=== PATIENT | female | born 1970 | race African-American/Black ===

== ENCOUNTER 2019-12-01 08:01 | Outpatient (CLI) | payer OTHER, SELFPAY ==
--- NOTE | ~2019-12-01 | CT_ITS ---
EXAMINATION: CT cervical spine wo con DATE: 12/01/2019 08:38 INDICATION: Cervical radiculopathy TECHNIQUE: Computed tomography (CT) of the cervical spine was performed without intravenous contrast. The dose-length product (DLP) was there is no fracture. 100 and mGy-cm. Automated exposure control a nd iterative reconstruction technique were employed. COMPARISON: MRI, 03/26/2018 FINDINGS: There is reversal of the normal cervical lordosis. There are 2 mm of anterolisthesis of C4 on C5. There is moderate loss of intervertebral disc space height at C5-6 and mild loss of interverte bral disc space height at C4-5 and C6-7. The odontoid is intact. There is minimal posterior disc bulg e at C4-5 without central canal stenosis. A mild diffuse disc bulge is present at C5-6 with mild cent ral canal stenosis, unchanged. A mild posterior disc bulge is present at C6-7 without central canal s tenosis. There is moderate to severe bilateral uncovertebral joint osteoarthritis at C5-6 and C6-7. IMPRESSION: 1. Mild to moderate cervical spondylosis, worst at C5-6, without acute findings or significant interv al change. Reviewed, dictated and finalized at location A. ETRICIAN AND GYNAECOLOGIST IMPRESSION: 1. Mild to moderate cervical spondylosis, worst at C5-6, without acute findings or significant interval change.
== END 2019-12-01 08:02 | disposition home or self-care (01) ==
PROVIDERS: PCP Family Medicine; Visit Provider Nurse Practitioner Gerontology
DX: M47.22 Other spondylosis with radiculopathy, cervical region (principal)
CPT/HCPCS: 72125

== ENCOUNTER 2021-09-15 16:15 | Outpatient (CLI) | payer BC, SELFPAY ==
--- NOTE | ~2021-09-15 | XR_ITS ---
EXAMINATION: XR ankle RT 2V DATE: 09/15/2021 16:29 INDICATION: Right ankle pain. TECHNIQUE: 2 views of right ankle were obtained. COMPARISON: None. FINDINGS: Bone alignment is normal. No fracture. Joint spaces are well maintained. There are enthesop hytes at the posterior and plantar aspects of calcaneal tuberosity. IMPRESSION: 1. No fracture. Reviewed, dictated and finalized at location A. FORCE DEVELOPMENT VICE PRESIDENT IMPRESSION: 1. No fracture.
== END 2021-09-15 16:16 ==
PROVIDERS: PCP Family Medicine; Visit Provider Family Medicine
DX: M25.571 Pain in right ankle and joints of right foot (principal)
CPT/HCPCS: 73600

== ENCOUNTER → 2021-11-07 03:12 | Outpatient (CLI) | payer BC, SELFPAY ==
[2021-11-07 16:39] LABS: Influenza A QL RT-PCR Negative (Negative); Influenza B QL RT-PCR Negative (Negative); SARS-CoV-2 RNA PCR Positive
== END ==
PROVIDERS: PCP Family Medicine; Visit Provider Physician Assistant
DX: R68.89 Other general symptoms and signs (principal); U07.1 COVID-19
CPT/HCPCS: 87502; C9803; U0003; U0005

== ENCOUNTER 2021-11-13 15:17 | Outpatient (CLI) | payer BC, SELFPAY ==
[2021-11-13 15:58] LABS: Anion Gap 11 mmol/L (8-16); Blood Urea Nitrogen 18 mg/dL (7-17); Calcium 9.5 mg/dL (8.4-10.2); Carbon Dioxide 26 mmol/L (22-30); Chloride 101 mmol/L (98-107); Estimated Glomerular Filt Rate > 60; Glucose 108 mg/dL (65-110); Potassium 3.4 mmol/L (3.4-5.0); Sodium 138 mmol/L (137-145)
== END 2021-11-13 15:18 | disposition home or self-care (01) ==
LOC: ANHLAB 15:18
PROVIDERS: PCP Family Medicine; Visit Provider Physician Assistant
DX: U07.1 COVID-19 (principal); R51.9 Headache, unspecified
CPT/HCPCS: 36415; 80048

== ENCOUNTER 2021-12-30 08:42 | Outpatient (CLI) | payer BC, SELFPAY ==
--- NOTE | ~2021-12-30 | US_ITS ---
EXAMINATION: US aorta DATE: 12/30/2021 09:45 CDT INDICATION: Family history of abdominal aortic aneurysm. Hypertension. TECHNIQUE: Grayscale, color Doppler, and pulsed Doppler images of the aorta and common iliac arteries were obtained. COMPARISON: None. FINDINGS: The proximal aorta measures 2.4 cm greatest sagittal dimension. The mid aorta measures 1.9 cm greates t sagittal dimension. The distal aorta measures 1.7 cm greatest sagittal dimension. The right common internal iliac artery measures 0.9 cm. The left common iliac artery measures 0.9 cm. IMPRESSION: 1. Normal caliber aorta without aneurysm. Reviewed, dictated and finalized at location B.
== END 2021-12-30 08:43 | disposition home or self-care (01) ==
LOC: ANHIMG 08:47
PROVIDERS: PCP Family Medicine; Visit Provider Internal Medicine Cardiovascular Disease
DX: I10 Essential (primary) hypertension (principal); Z82.49 Family history of ischemic heart disease and other diseases of the circulatory system
CPT/HCPCS: 76775

== ENCOUNTER 2022-03-05 00:37 | Day surgery (SDC) | payer BC, SELFPAY ==
[2022-03-02 15:07] VITALS: BMI 27.8
--- NOTE | 2022-03-02 15:10 | SUR.PREOP ---
Report to the Outpatient Waiting Room, entrance under the green pavilion located off [facility], at time 0700 on Mar 05 2022 for 0900 procedure. - You and your visitor will be asked a series of questions to screen for COVID 19 for your protection. - Only one visitor is allowed at this time. - The patient visitor is requested to leave or wait in car when not with patient. - A mask is required within the hospital. Patients may have clear liquids (water, carbonated beverages, clear teas, apple juice) until 3 hours prior to surgery with a maximum of 20 ounces. stop at 0600 Take the following medications with a SIP of water the morning of surgery: amlodopine and bring inhaler in case you need it Medications to discontinue per physician NA Date to take last dose NA Please no make-up, nail hebrew, hairspray, perfume, deodorant, or body powder the day of surgery. No jewelry (including any body piercings) or valuables the day of surgery, leave them at home. Please take a shower or bath the night before, or the morning of, surgery with an antibacterial soap. Wear comfortable, loose fitting clothing. Children are encouraged to wear pajamas. - Jewelry must be removed prior to entering the operating room. Rings and piercing that are not removed may be cut off. - The hospital will not accept responsibility for valuables. - Please leave all valuables, including medications, at home the day of surgery. If you are going home after surgery, a licensed local driver must drive you home. - NO public transportation without another adult. - We recommend that an adult stay with you for 24 hours following discharge. - We also recommend that you do not drive, make important decision, drink alcoholic beverages, or take any drugs that were not prescribed by your health care provider for at least 24 hours after your discharge time. Follow any additional instructions given to you from your surgeon. If you or anyone in your household have experienced Covid symptoms in the past week, please notify your surgeon or the nurse liaison at the phone number below for possible testing. Telephone instructions given to patient Yulissa and asked if any additional questions and then verbalized understanding. Patient advised to call surgeon office or pre surgery nurse liaison [phone] if any additional questions.
--- NOTE | 2022-03-04 08:52 | PM.IMHP ---
H&P: HPI History of Present Illness Date/Time: 03/04/22 08:52 51-year-old female presents for surgical intervention for abnormal bleeding. Ultrasound ordered for the bleeding revealed a known uterine fibroid as well as thickened endometrial cavity a 17mm consistent with endometrial polyp. We have discussed more definitive therapy regarding the fibroid but she has had this for a significant period of time and this in and of itself has caused her no issues. Therefore we will be proceeding with hysteroscopy and removal of polyp only today. Chief Complaint: Abnormal bleeding/ endometrial hypertrophy Review of Systems Review of Systems: All systems reviewed & are unremarkable except as noted in HPI and below PMFSH Past Medical History Medical History Achilles tendinitis of right lower extremity Arthritis of knee, right Chronic headaches Exostosis of right posterior calcaneus History of anesthesia problem HLD (hyperlipidemia) HTN (hypertension) HTN (hypertension) Lymph node symptom removed in 1999 per patient questionnaire Vertigo Weight gain Surgical History Surgical History H/O arthroscopy of right knee 2013 per patient questionnaire History of sinus surgery deviated septum 1997 per patient questionnaire Family History Family History Other HLD (hyperlipidemia) Heart disease Hypertension Lung cancer Social History Social History Smoking status: Never smoker Second hand tobacco smoke exposure: No Alcohol intake: current Drinks per week: 2 Alcohol use details: social drinker Substance use: never Substance use type: does not use Living arrangements: with family Additional living arrangements comments: 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 [employer] Gender identity (if verbalized by the patient): Female Sexual Orientation (if Verbalized by the Patient): Straight or Heterosexual Spiritual care concerns: No Meds Home Medications and Allergies Home Medications Medication Instructions Recorded Confirmed Type famotidine 20 mg tablet 20 mg PO .qhs #30 tablet 09/27/19 03/02/22 Rx albuterol sulfate 90 mcg/actuation 1 - 2 inhalation INHALATION Q4-6H 07/09/20 03/02/22 Rx aerosol inhaler PRN #8.5 gm meloxicam 15 mg tablet 15 mg PO PRN 09/08/21 03/02/22 History amlodipine 5 mg tablet 5 mg PO DAILY #30 tablet 10/20/21 03/02/22 Rx jwziyrldhx-aiomcgpipsupx-gtfaabbz 1 tablet PO Q6H PRN #30 tablet 11/17/21 03/02/22 Rx 50 mg-325 mg-40 mg tablet hydrochlorothiazide 12.5 mg tablet 12.5 mg PO DAILY #30 tablet 12/02/21 03/02/22 Rx Allergies Allergy/AdvReac Type Severity Reaction Status Date / Time Penicillins Allergy Unknown Anaphylaxis Verified 03/02/22 14:45 sumatriptan Allergy Unknown Swelling Verified 03/02/22 14:45 of Lip/Tongue/Throat Exam Const: General: cooperative, healthy appearing and comfortable Resp: Effort & Inspection: normal respiratory effort Auscultation: clear to auscultation bilaterally Cardio: Rate: regular rate Rhythm: regular rhythm GI: Inspection: normal to inspection Auscultation: normal bowel sounds : External Female Exam: normal external appearance Speculum Exam - Vagina: normal appearance of the vagina Speculum Exam - Cervix: normal appearance of the cervix Bimanual exam- vagina & uterus: enlarged ( 8-10 week size with lateral fibroid palpated) Bimanual Exam- Adnexa, other: normal adnexae Assessment and Plan Assessment and plan (1) Abnormal uterine bleeding due to endometrial polyp: Code(s): N93.9 - Abnormal uterine and vaginal bleeding, unspecified; N84.0 - Polyp of corpus uteri Status: Acute Assessment and Plan: hysteroscopic exa
[2022-03-05] MEDS: LACTATED RINGERS 1,000 ML 30 ML IV CONT (07:00)
--- NOTE | 2022-03-05 07:22 | WPDHPUPDATE1 ---
History and Physical Update Update Date/Time: 03/05/22 07:22 History and Physical has been reviewed, including an updated exam of the patient. There are NO changes in the patient's condition. Risks, benefits, and alternatives have been discussed and questions answered. Patient agrees to proceed with procedure.
[2022-03-05] MEDS: ACETAMINOPHEN 500 MG TABLET 1000 MG PO (07:29)
[2022-03-05 07:45] VITALS: BP 133/85; PULSE 77; RESP 16; TEMP 36.7; O2SAT 100
--- NOTE | 2022-03-05 07:51 | WPDANESEPPF ---
Anes - Initial Pre Proc Eval Procedure: Operation Date: 03/05/22 09:00 Proposed Procedures p Hysteroscopy, Dilation and Curettage with Polypectomy - Ismael Cox MD Date/Time: 03/05/22 07:51 Surgeon: Ismael Cox MD Pre Op Diagnosis: uterine polyp Patient Data Age: 51 Gender: F Height: 1.75 m Weight: 85.45 kg Allergies Allergy/AdvReac Type Severity Reaction Status Date / Time Penicillins Allergy Unknown Anaphylaxis Verified 03/02/22 14:45 sumatriptan Allergy Unknown Swelling Verified 03/02/22 14:45 of Lip/Tongue/Throat Home Medications Medication Instructions Recorded Confirmed Type famotidine 20 mg tablet 20 mg PO .qhs #30 tablet 09/27/19 03/02/22 Rx albuterol sulfate 90 mcg/actuation 1 - 2 inhalation INHALATION Q4-6H 07/09/20 03/02/22 Rx aerosol inhaler PRN #8.5 gm meloxicam 15 mg tablet 15 mg PO PRN 09/08/21 03/02/22 History amlodipine 5 mg tablet 5 mg PO DAILY #30 tablet 10/20/21 03/02/22 Rx cvxngcnlhv-pdkqbqndfjape-yzuadkuu 1 tablet PO Q6H PRN #30 tablet 11/17/21 03/02/22 Rx 50 mg-325 mg-40 mg tablet hydrochlorothiazide 12.5 mg tablet 12.5 mg PO DAILY #30 tablet 12/02/21 03/02/22 Rx Laboratory Tests 03/05/22 07:28 Sodium Pending Potassium Pending Chloride Pending Carbon Dioxide Pending Anion Gap Pending BUN Pending Creatinine Pending Estim Creat Clear Calc Pending Estimated GFR Pending Glucose Pending Calcium Pending Patient hx anesthesia problems: post op nausea/vomiting Family hx anesthesia problems: none Results Review: All pre-operative results and documents have been reviewed as part of the pre-operative evaluation. [facility] Past Medical History Medical History Achilles tendinitis of right lower extremity Arthritis of knee, right Chronic headaches Exostosis of right posterior calcaneus History of anesthesia problem HLD (hyperlipidemia) HTN (hypertension) HTN (hypertension) Lymph node symptom removed in 1999 per patient questionnaire Vertigo Weight gain Surgical History Surgical History H/O arthroscopy of right knee 2013 per patient questionnaire History of sinus surgery deviated septum 1997 per patient questionnaire Family History Family History Other HLD (hyperlipidemia) Heart disease Hypertension Lung cancer Social History Social History Smoking status: Never smoker Second hand tobacco smoke exposure: No Alcohol intake: current Drinks per week: 2 Alcohol use details: social drinker Substance use: never Substance use type: does not use Living arrangements: with family Additional living arrangements comments: 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 [employer] Gender identity (if verbalized by the patient): Female Sexual Orientation (if Verbalized by the Patient): Straight or Heterosexual Spiritual care concerns: No Anes - Eval Final PreProcedure Day of Procedure 03/05/22 07:51 Patient weight: overweight Heart: regular rate and rhythm Lungs: clear to auscultation Airway: Mallampati scale class II Neurological: alert and oriented Last oral intake: >/= 8 hours ASA classification: III Emergent: no Anesthetic plan: proceed Anesthesia type and monitoring: general GIVS and standard monitoring Results Review: All pre-operative results and documents have been reviewed as part of the pre-operative evaluation. Informed Consent: The patient's anesthetic plan and its attendant risks and benefits were discussed with the patient/family/POA. Questions were solicited and answers provided to the satisfaction of the patient/family/POA.
[2022-03-05 07:58] LABS: Anion Gap 11 mmol/L (8-16); Blood Urea Nitrogen 16 mg/dL (7-17); Calcium 9.4 mg/dL (8.4-10.2); Carbon Dioxide 27 mmol/L (22-30); Chloride 102 mmol/L (98-107); Estimated CRCL calculation 77 ml/min; Estimated Glomerular Filt Rate > 60; Glucose 108 mg/dL (65-110); Potassium 3.8 mmol/L (3.4-5.0); Sodium 140 mmol/L (137-145)
--- NOTE | 2022-03-05 08:34 | WPDHPUPDATE1 ---
History and Physical Update Update Date/Time: 03/05/22 08:34 If fibroid and or polyp is noted during procedure at will ovary removed whether by MyoSure or some other method. History and Physical has been reviewed, including an updated exam of the patient. There are NO changes in the patient's condition. Risks, benefits, and alternatives have been discussed and questions answered. Patient agrees to proceed with procedure.
--- NOTE | 2022-03-05 09:07 | PM.OP ---
Procedure Note - Brief Procedure Note - Brief Date of procedure: 03/05/22 Pre-op diagnosis: uterine polyp Post-op diagnosis: Same Procedure performed: 1. Hysteroscopy 2. Uterine curettings 3. Polypectomy via MyoSure. Description of procedure: Patient usual manner for this procedure cervix is still and upon entry thickened cavity polyps. MyoSure was then used to polyp in excess tissue. Sharp curette throughout the rest of the cavity to remove whatever remaining tissue was there. This point seizure was considered terminated bleeding and she was sent to the recovery room stable condition. Anesthesia: MAC Surgeon: Ismael Cox MD Estimated blood loss (mL): 25 Drains: No Packing: No Pathology: Yes Complications: No immediate complications Condition: Stable Disposition: PACU Findings: Polyp and thickened endometrial cavity noted on hysteroscopic exam
[2022-03-05 09:20] VITALS: BP 134/91; PULSE 81; RESP 16; O2SAT 100
[2022-03-05 09:45] VITALS: BP 133/87; PULSE 69; RESP 12; O2SAT 100
[2022-03-05 10:15] VITALS: BP 132/87; PULSE 64; RESP 12
== END 2022-03-05 10:35 | disposition home or self-care (01) ==
PROVIDERS: Anesthesiology; PCP Family Medicine; Visit Provider Obstetrics & Gynecology
PROC: 0U5B8ZZ Destruction of Endometrium, Via Natural or Artificial Opening Endoscopic (ICD-10-PCS; CPT 58563; principal; 2022-03-05 09:00)
DX: N84.0 Polyp of corpus uteri (principal); N93.9 Abnormal uterine and vaginal bleeding, unspecified; I10 Essential (primary) hypertension; E78.5 Hyperlipidemia, unspecified; Z79.51 Long term (current) use of inhaled steroids
CPT/HCPCS: 58558; 36415; 80048; 88305; A9270; J1100; J2250; J2405; J2704; J3010; J7030; J7120

== ENCOUNTER 2022-09-29 11:39 | Outpatient (CLI) | payer BC, SELFPAY ==
--- NOTE | ~2022-09-29 | CT_ITS ---
EXAMINATION: CT sinus wo con DATE: 09/29/2022 11:52 INDICATION: Chronic pansinusitis TECHNIQUE: Computed tomography (CT) of the paranasal sinuses was performed without intravenous contra st. The dose-length product was 281.78 mGy-cm. Automated exposure control and iterative reconstructio n technique were employed. COMPARISON: None FINDINGS: There is mucosal thickening of the maxillary and the ethmoid sinuses. No air-fluid levels. No significant mucoperiosteal reaction. No nasal septal deviation. Right ostiomeatal unit is occluded by soft tissue. Left ostiomeatal unit is partially occluded. Mastoids are pneumatized. IMPRESSION: 1. Mild sinusitis of the maxillary and ethmoid sinuses, likely chronic. Reviewed, dictated and finalized at location B. OGRAPHER
== END 2022-09-29 11:40 ==
PROVIDERS: PCP Family Medicine; Visit Provider Otolaryngology
DX: J32.4 Chronic pansinusitis (principal)
CPT/HCPCS: 70486

== ENCOUNTER 2023-08-26 09:00 | Outpatient (CLI) | payer BC, SELFPAY ==
--- NOTE | ~2023-08-26 | NM_ITS ---
EXAM: NM gastric emptying study DATE: 08/26/2023 13:23 INDICATION: Nausea. Abnormal CT scan. TECHNIQUE: A gastric emptying study was performed using the methodology of Chandan ALANIZ, et al. J Nucl Med 2007; 48:568-572. The patient was given a meal consisting of 2 scrambled eggs labeled with 0.76 mCi Tc-99m sulfur colloid, 2 slices of toast, two packages of jam, and approximately 120 mL of water. Simultaneous anterior and posterior 1-min images of the abdomen were obtained with the patient supin e at multiple time points over a total period of 4 hours. The geometric mean of anterior and posterio r views was determined, and the percentage retention was calculated for each time point. COMPARISON: None. FINDINGS: Gastric retention of the radiotracer-labeled meal was 53%, 27%, and 6% at the 1-hour, 2-hour, and 4-h our time points, respectively. With this technique, apparent rapid gastric emptying is suggested by < 30% gastric retention at 1 hour. Delayed gastric emptying is defined by gastric retention of >90% at 1 hour, >60% retention at 2 hours, or >10% retention at 4 hours. IMPRESSION: 1. Normal gastric emptying. Reviewed, dictated and finalized at location A. MOTIVE REFINISHER IMPRESSION: 1. Normal gastric emptying.
== END 2023-08-26 09:01 | disposition home or self-care (01) ==
PROVIDERS: PCP Family Medicine; Visit Provider Nurse Practitioner Family
DX: R11.0 Nausea (principal); R93.89 Abnormal findings on diagnostic imaging of other specified body structures
CPT/HCPCS: 78264; A9541

== ENCOUNTER 2023-09-07 01:35 | Day surgery (SDC) | payer BC, SELFPAY ==
[2023-08-25 10:59] VITALS: BMI 25.7
--- NOTE | 2023-09-03 14:35 | SUR.PREOP ---
Patient called regarding upcoming procedure. Reviewed preop instructions, appointment times, and procedure prep.
[2023-09-07 06:58] VITALS: BP 145/81; PULSE 76; RESP 17; TEMP 36.3; O2SAT 100; BMI 25.9
[2023-09-07] MEDS: LACTATED RINGERS 1,000 ML 150 ML IV CONT (07:11)
--- NOTE | 2023-09-07 07:56 | WPDANESEPPF ---
Anes - Initial Pre Proc Eval Procedure: Operation Date: 09/07/23 08:30 Proposed Procedures p Esophagogastroduodenoscopy & Colonoscopy - Barron Car MD Date/Time: 09/07/23 07:56 Surgeon: Barron Car MD Pre Op Diagnosis: Left Lower Quad Pain, Melena,GERD,Nausea, Patient Data Age: 53 Gender: F Height: 1.75 m Weight: 79.7 kg Last Vital Signs Temp 36.3 C L 09/07/23 06:58 Pulse 76 09/07/23 06:58 Resp 17 09/07/23 06:58 BP 145/81 H 09/07/23 06:58 Pulse Ox 100 09/07/23 06:58 O2 Del Method Room Air 09/07/23 06:58 Allergies Allergy/AdvReac Type Severity Reaction Status Date / Time Penicillins Allergy Unknown Anaphylaxis Verified 09/07/23 06:56 sumatriptan Allergy Unknown Swelling Verified 09/07/23 06:56 of Lip/Tongue/Throat Home Medications Medication Instructions Recorded Confirmed Type famotidine 20 mg tablet 20 mg PO .qhs #30 tabs 09/27/19 09/07/23 Rx albuterol sulfate 90 mcg/actuation 1 - 2 inhalation inhalation Q4-6H 07/09/20 09/07/23 Rx aerosol inhaler PRN shortness of breath or wheezing #8.5 grams meloxicam 15 mg tablet 15 mg PO PRN 09/08/21 09/07/23 History triamcinolone acetonide 0.5 % 1 applic topical BID #15 grams 04/09/23 09/07/23 Rx topical cream amlodipine 5 mg tablet 5 mg PO DAILY #90 tabs 04/29/23 09/07/23 Rx ibuprofen 800 mg tablet 800 mg PO TID PRN pain #20 tabs 04/29/23 09/07/23 Rx hydrochlorothiazide 12.5 mg tablet 12.5 mg PO DAILY #90 tabs 05/24/23 09/07/23 Rx hyoscyamine sulfate 0.125 mg 0.125 mg PO QID PRN GI upset #60 07/27/23 09/07/23 Rx sublingual tablet tabs ondansetron 4 mg disintegrating 4 mg PO Q8H PRN nausea and 08/09/23 09/07/23 Rx tablet vomiting #30 tabs metoclopramide HCl 5 mg tablet 5 mg PO DAILY 08/25/23 09/07/23 History wzldvzmlax-nmyysnxtqzuxv-cbndpuwa 1 tablet PO Q6H PRN headache #30 08/26/23 09/07/23 Rx 50 mg-325 mg-40 mg tablet tabs Results Review: All pre-operative results and documents have been reviewed as part of the pre-operative evaluation. [facility] Past Medical History Medical History Achilles tendinitis of right lower extremity Arthritis of knee, right Chronic headaches Colitis Exostosis of right posterior calcaneus Gastroparesis Hepatic cyst History of anesthesia problem HLD (hyperlipidemia) HTN (hypertension) HTN (hypertension) Lymph node symptom (~1998) removed Lymphoma Screening mammogram, encounter for Vertigo Weight gain Surgical History Surgical History H/O arthroscopy of right knee (~2013) History of gynecological procedure (03/05/22) Hscope D&C / polypectomy History of sinus surgery deviated septum 1997 per patient questionnaire Family History Family History Other HLD (hyperlipidemia) Heart disease Hypertension Lung cancer Social History Social History Smoking status: Never smoker Second hand tobacco smoke exposure: No Alcohol intake: former Drinks per week: 2 Alcohol use details: social drinker Substance use: never Substance use type: does not use Lack of Transportation: No Lack of Food: Never True Current Housing: I Have Housing Concerned About Future Housing: No Difficulty Paying Gas/Electric Bills: No Difficulty Paying for Meds: No Currently Unemployed: YES Education: Associate Degree Difficulty w/ Childcare or Family Care: No Living arrangements: with family Additional living arrangements comments: Occupation/Education: occupation 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
--- NOTE | 2023-09-07 08:05 | WPDANESEPPF ---
Anes - Initial Pre Proc Eval Procedure: Operation Date: 09/07/23 08:30 Proposed Procedures p Esophagogastroduodenoscopy & Colonoscopy - Barron Car MD Date/Time: 09/07/23 08:05 Surgeon: Barron Car MD Pre Op Diagnosis: Left Lower Quad Pain, Melena,GERD,Nausea, Patient Data Age: 53 Gender: F Height: 1.75 m Weight: 79.7 kg Last Vital Signs Temp 97.4 F L 09/07/23 06:58 Pulse 76 09/07/23 06:58 Resp 17 09/07/23 06:58 BP 145/81 H 09/07/23 06:58 Pulse Ox 100 09/07/23 06:58 O2 Del Method Room Air 09/07/23 06:58 Allergies Allergy/AdvReac Type Severity Reaction Status Date / Time Penicillins Allergy Unknown Anaphylaxis Verified 09/07/23 06:56 sumatriptan Allergy Unknown Swelling Verified 09/07/23 06:56 of Lip/Tongue/Throat Home Medications Medication Instructions Recorded Confirmed Type famotidine 20 mg tablet 20 mg PO .qhs #30 tabs 09/27/19 09/07/23 Rx albuterol sulfate 90 mcg/actuation 1 - 2 inhalation inhalation Q4-6H 07/09/20 09/07/23 Rx aerosol inhaler PRN shortness of breath or wheezing #8.5 grams meloxicam 15 mg tablet 15 mg PO PRN 09/08/21 09/07/23 History triamcinolone acetonide 0.5 % 1 applic topical BID #15 grams 04/09/23 09/07/23 Rx topical cream amlodipine 5 mg tablet 5 mg PO DAILY #90 tabs 04/29/23 09/07/23 Rx ibuprofen 800 mg tablet 800 mg PO TID PRN pain #20 tabs 04/29/23 09/07/23 Rx hydrochlorothiazide 12.5 mg tablet 12.5 mg PO DAILY #90 tabs 05/24/23 09/07/23 Rx hyoscyamine sulfate 0.125 mg 0.125 mg PO QID PRN GI upset #60 07/27/23 09/07/23 Rx sublingual tablet tabs ondansetron 4 mg disintegrating 4 mg PO Q8H PRN nausea and 08/09/23 09/07/23 Rx tablet vomiting #30 tabs metoclopramide HCl 5 mg tablet 5 mg PO DAILY 08/25/23 09/07/23 History drczkrykvl-dpoyjlfpgiwga-mhzsjalf 1 tablet PO Q6H PRN headache #30 08/26/23 09/07/23 Rx 50 mg-325 mg-40 mg tablet tabs Patient hx anesthesia problems: none Family hx anesthesia problems: none Results Review: All pre-operative results and documents have been reviewed as part of the pre-operative evaluation. [facility] Past Medical History Medical History Achilles tendinitis of right lower extremity Arthritis of knee, right Chronic headaches Colitis Exostosis of right posterior calcaneus Gastroparesis Hepatic cyst History of anesthesia problem HLD (hyperlipidemia) HTN (hypertension) HTN (hypertension) Lymph node symptom (~1998) removed Lymphoma Screening mammogram, encounter for Vertigo Weight gain Surgical History Surgical History H/O arthroscopy of right knee (~2013) History of gynecological procedure (03/05/22) Hscope D&C / polypectomy History of sinus surgery deviated septum 1997 per patient questionnaire Family History Family History Other HLD (hyperlipidemia) Heart disease Hypertension Lung cancer Social History Social History Smoking status: Never smoker Second hand tobacco smoke exposure: No Alcohol intake: former Drinks per week: 2 Alcohol use details: social drinker Substance use: never Substance use type: does not use Lack of Transportation: No Lack of Food: Never True Current Housing: I Have Housing Concerned About Future Housing: No Difficulty Paying Gas/Electric Bills: No Difficulty Paying for Meds: No Currently Unemployed: YES Education: Associate Degree Difficulty w/ Childcare or Family Care: No Living arrangements: with family Additional living arrangements comments: Occupation/Education: occupation 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
--- NOTE | 2023-09-07 08:08 | WPDANESEPPF ---
Anes - Initial Pre Proc Eval Procedure: Operation Date: 09/07/23 08:30 Proposed Procedures p Esophagogastroduodenoscopy & Colonoscopy - Barron Car MD Date/Time: 09/07/23 08:08 Surgeon: Barron Car MD Pre Op Diagnosis: Left Lower Quad Pain, Melena,GERD,Nausea, Patient Data Age: 53 Gender: F Height: 1.75 m Weight: 79.7 kg Last Vital Signs Temp 97.4 F L 09/07/23 06:58 Pulse 76 09/07/23 06:58 Resp 17 09/07/23 06:58 BP 145/81 H 09/07/23 06:58 Pulse Ox 100 09/07/23 06:58 O2 Del Method Room Air 09/07/23 06:58 Allergies Allergy/AdvReac Type Severity Reaction Status Date / Time Penicillins Allergy Unknown Anaphylaxis Verified 09/07/23 06:56 sumatriptan Allergy Unknown Swelling Verified 09/07/23 06:56 of Lip/Tongue/Throat Home Medications Medication Instructions Recorded Confirmed Type famotidine 20 mg tablet 20 mg PO .qhs #30 tabs 09/27/19 09/07/23 Rx albuterol sulfate 90 mcg/actuation 1 - 2 inhalation inhalation Q4-6H 07/09/20 09/07/23 Rx aerosol inhaler PRN shortness of breath or wheezing #8.5 grams meloxicam 15 mg tablet 15 mg PO PRN 09/08/21 09/07/23 History triamcinolone acetonide 0.5 % 1 applic topical BID #15 grams 04/09/23 09/07/23 Rx topical cream amlodipine 5 mg tablet 5 mg PO DAILY #90 tabs 04/29/23 09/07/23 Rx ibuprofen 800 mg tablet 800 mg PO TID PRN pain #20 tabs 04/29/23 09/07/23 Rx hydrochlorothiazide 12.5 mg tablet 12.5 mg PO DAILY #90 tabs 05/24/23 09/07/23 Rx hyoscyamine sulfate 0.125 mg 0.125 mg PO QID PRN GI upset #60 07/27/23 09/07/23 Rx sublingual tablet tabs ondansetron 4 mg disintegrating 4 mg PO Q8H PRN nausea and 08/09/23 09/07/23 Rx tablet vomiting #30 tabs metoclopramide HCl 5 mg tablet 5 mg PO DAILY 08/25/23 09/07/23 History qqaqrqowjb-gkhewuyunjrfv-nimquxni 1 tablet PO Q6H PRN headache #30 08/26/23 09/07/23 Rx 50 mg-325 mg-40 mg tablet tabs Patient hx anesthesia problems: none Family hx anesthesia problems: none Results Review: All pre-operative results and documents have been reviewed as part of the pre-operative evaluation. [facility] Past Medical History Medical History Achilles tendinitis of right lower extremity Arthritis of knee, right Chronic headaches Colitis Exostosis of right posterior calcaneus Gastroparesis Hepatic cyst History of anesthesia problem HLD (hyperlipidemia) HTN (hypertension) HTN (hypertension) Lymph node symptom (~1998) removed Lymphoma Screening mammogram, encounter for Vertigo Weight gain Surgical History Surgical History H/O arthroscopy of right knee (~2013) History of gynecological procedure (03/05/22) Hscope D&C / polypectomy History of sinus surgery deviated septum 1997 per patient questionnaire Family History Family History Other HLD (hyperlipidemia) Heart disease Hypertension Lung cancer Social History Social History Smoking status: Never smoker Second hand tobacco smoke exposure: No Alcohol intake: former Drinks per week: 2 Alcohol use details: social drinker Substance use: never Substance use type: does not use Lack of Transportation: No Lack of Food: Never True Current Housing: I Have Housing Concerned About Future Housing: No Difficulty Paying Gas/Electric Bills: No Difficulty Paying for Meds: No Currently Unemployed: YES Education: Associate Degree Difficulty w/ Childcare or Family Care: No Living arrangements: with family Additional living arrangements comments: Occupation/Education: occupation 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
--- NOTE | 2023-09-07 08:20 | PM.HPGS ---
History of Present Illness History of Present Illness Consent: Risks, benefits, and alternatives have been discussed and questions answered. Patient agrees to proceed with procedure. Chief complaint: Left Lower Quad Pain, Melena,GERD,Nausea, Narrative: Yulissa Magaña is a 53 year old female with episode of llq pain, colitis with diarrhea treated with abx, also had nausea. Never had scopes. Review of Systems Constitutional: Constitutional: Denies headache(s) and Denies weakness Eyes: Eyes: Denies blurry vision ENT: Reports Normal hearing present, Denies headache(s) and Denies neck pain Cardiovascular: Cardiovascular: Denies chest pain and Denies dyspnea Respiratory: Respiratory: Denies dyspnea Gastrointestinal: Gastrointestinal: Reports no additional gastrointestinal complaints Genitourinary: Genitourinary: Denies dysuria Musculoskeletal: Musculoskeletal: Denies neck pain Integumentary/Breasts: Skin/Breast: Denies dry skin Neurologic: Reports Normal hearing present, Denies headache(s) and Denies weakness Psychiatric: Psychiatric: Denies anxiety Endocrine: Endocrine: Denies change in body appearance Hematologic/Lymphatic: Hematologic/Lymphatic: Denies easy bleeding Allergic/Immunologic: Allergic/Immunologic: Denies urticaria PMF Past Medical History Medical History (Updated 09/07/23 @ 08:22 by Barron Car MD) Achilles tendinitis of right lower extremity Arthritis of knee, right Chronic headaches Colitis Exostosis of right posterior calcaneus Gastroparesis Hepatic cyst History of anesthesia problem History of colitis HLD (hyperlipidemia) HTN (hypertension) HTN (hypertension) Lymph node symptom (~1998) removed Lymphoma Nausea Screening mammogram, encounter for Vertigo Weight gain Surgical History Surgical History H/O arthroscopy of right knee (~2013) History of gynecological procedure (03/05/22) Hscope D&C / polypectomy History of sinus surgery deviated septum 1997 per patient questionnaire Family History Family History Other HLD (hyperlipidemia) Heart disease Hypertension Lung cancer Social History Social History Smoking status: Never smoker Second hand tobacco smoke exposure: No Alcohol intake: former Drinks per week: 2 Alcohol use details: social drinker Substance use: never Substance use type: does not use Lack of Transportation: No Lack of Food: Never True Current Housing: I Have Housing Concerned About Future Housing: No Difficulty Paying Gas/Electric Bills: No Difficulty Paying for Meds: No Currently Unemployed: YES Education: Associate Degree Difficulty w/ Childcare or Family Care: No Living arrangements: with family Additional living arrangements comments: Occupation/Education: occupation 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 [employer] Gender identity (if verbalized by the patient): Female Sexual Orientation (if Verbalized by the Patient): Straight or Heterosexual Spiritual care concerns: No Meds Home Medications and Allergies Home Medications Medication Instructions Recorded Confirmed Type famotidine 20 mg tablet 20 mg PO .qhs #30 tabs 09/27/19 09/07/23 Rx albuterol sulfate 90 mcg/actuation 1 - 2 inhalation inhalation Q4-6H 07/09/20 09/07/23 Rx aerosol inhaler PRN shortness of breath or wheezing #8.5 grams meloxicam 15 mg tablet 15 mg PO PRN 09/08/21 09/07/23 History triamcinolone acetonide 0.5 % 1 applic topical BID #15 grams 04/09/23 09/07/23 Rx topical cream amlodipine 5 mg tablet 5 mg PO DAILY #90 tabs 04/29/23 09/07/23 Rx ibuprofen 800 mg tablet 800 mg PO TID PRN pain #20 tabs 04/29/23 09/07/23 Rx hydrochlorothiazide 12.5 mg tablet 12.5 mg PO DAILY #90 tabs 05/24
--- NOTE | 2023-09-07 08:31 | SUR.OPER ---
EGD START: 826; END: 828. COLONOSCOPY START: 833; END: 841.
[2023-09-07 08:47] VITALS: BP 114/78; PULSE 80; RESP 22; O2SAT 100
[2023-09-07 08:57] VITALS: BP 120/83; PULSE 82; RESP 20; O2SAT 100
[2023-09-07 09:07] VITALS: BP 132/78; PULSE 74; RESP 20; O2SAT 100
== END 2023-09-07 09:18 | disposition home or self-care (01) ==
PROVIDERS: PCP Family Medicine; Visit Provider Internal Medicine Gastroenterology
PROC: 0DJ08ZZ Inspection of Upper Intestinal Tract, Via Natural or Artificial Opening Endoscopic (ICD-10-PCS; CPT 43235; principal; 2023-09-07 08:30)
DX: R10.32 Left lower quadrant pain (principal); K21.9 Gastro-esophageal reflux disease without esophagitis; R51.9 Headache, unspecified; Z87.19 Personal history of other diseases of the digestive system; E78.5 Hyperlipidemia, unspecified; I10 Essential (primary) hypertension; Z82.49 Family history of ischemic heart disease and other diseases of the circulatory system; Z80.1 Family history of malignant neoplasm of trachea, bronchus and lung; Z79.51 Long term (current) use of inhaled steroids
CPT/HCPCS: 43239; 45378; 88305; J2001; J2704; J7120

== ENCOUNTER 2024-01-05 12:48 | Outpatient (CLI) | payer BC, SELFPAY ==
[2024-01-05 13:55] LABS: Hematocrit 40.8 % (37.0-47.0); Mean Corpuscular HGB Conc 31.9 g/dl (32-36); Mean Corpuscular Hemoglobin 27.8 pg (26-34); Mean Corpuscular Volume 87.2 fl (80-100); Platelet Count Result 262 k/mm3 (150-375); Red Blood Count 4.68 M/mm3 (4.2-5.4); Red Cell Distribution Width 13.8 % (11.5-14.5); White Blood Count 5.9 K/mm3 (4.5-10.0)
[2024-01-05 14:23] LABS: Appearance Urine Cloudy (Clear); Bacteria Urine None Seen /hpf; Bilirubin Urine Negative (Negative); Blood Urine Negative (Negative); Color Urine Yellow (Yellow); Glucose Urine UA Negative (Negative); Ketones Urine Negative (Negative); Leukocyte Esterase Ur Negative LEU/UL (Negative); Nitrate Urine Negative (Negative); Non Pathogenic Casts 0-2; Protein Urine Negative (Negative); RBC Urine 0-2 /hpf (0-2); Specific Grav Ur 1.016 (1.001-1.035); Squamous Epithelial Cell Urine Occasional /hpf (Few); Urobilinogen Urine 0.2 mg/dL (<2.0); WBC Urine 0-5 /hpf (0-3)
[2024-01-05 14:25] LABS: Alanine Aminotransferase 24 U/L (6-35); Albumin Level 4.6 g/dL (3.5-5.1); Alkaline Phosphatase 58 U/L (38-126); Anion Gap 4 mmol/L (8-16); Aspartate Amino Transferase 29 U/L (14-36); Bilirubin,Total 0.6 mg/dL (0.2-1.3); Blood Urea Nitrogen 11 mg/dL (7-17); Calcium 9.8 mg/dL (8.4-10.2); Carbon Dioxide 32 mmol/L (22-30); Chloride 102 mmol/L (98-107); Cholesterol 166 mg/dL (0-200); Estimated Glomerular Filt Rate > 60; Glucose 136 mg/dL (65-110); HDL Direct 45 mg/dL; Potassium 3.7 mmol/L (3.4-5.0); Sodium 138 mmol/L (137-145); Triglycerides 265 mg/dL (<150)
[2024-01-05 14:36] LABS: LDL Cholesterol Direct 94 mg/dL
[2024-01-05 14:48] LABS: Add Urine Microscopic? YES
== END 2024-01-05 12:49 | disposition home or self-care (01) ==
LOC: ANHLAB 12:52
PROVIDERS: PCP Family Medicine; Visit Provider Physician Assistant
DX: E78.5 Hyperlipidemia, unspecified (principal); I10 Essential (primary) hypertension; Z00.00 Encounter for general adult medical examination without abnormal findings
CPT/HCPCS: 36415; 80053; 80061; 84443; 85027

== ENCOUNTER 2024-08-18 07:12 | Outpatient (CLI) | payer BC, SELFPAY ==
[2024-08-18 07:46] LABS: Alanine Aminotransferase 22 U/L (6-35); Albumin Level 4.6 g/dL (3.5-5.1); Alkaline Phosphatase 52 U/L (38-126); Anion Gap 10 mmol/L (4-12); Aspartate Amino Transferase 29 U/L (14-36); Bilirubin,Total 0.7 mg/dL (0.2-1.3); Blood Urea Nitrogen 9 mg/dL (7-17); Calcium 9.6 mg/dL (8.4-10.2); Carbon Dioxide 31 mmol/L (22-30); Chloride 102 mmol/L (98-107); Cholesterol 186 mg/dL (0-200); Estimated Glomerular Filt Rate > 60; Glucose 92 mg/dL (65-110); HDL Direct 52 mg/dL; Sodium 143 mmol/L (137-145); Triglycerides 114 mg/dL (<150)
[2024-08-18 07:57] LABS: LDL Cholesterol Direct 95 mg/dL
== END 2024-08-18 07:13 | disposition home or self-care (01) ==
LOC: ANHLAB 07:13
PROVIDERS: PCP Family Medicine; Visit Provider Physician Assistant
DX: E78.1 Pure hyperglyceridemia (principal); I10 Essential (primary) hypertension
CPT/HCPCS: 36415; 80053; 80061

== ENCOUNTER 2025-04-24 12:28 | Outpatient (CLI) | payer BC, SELFPAY ==
--- NOTE | ~2025-04-24 | XR_ITS ---
[id number] 04/24/2025 12:55 Indication: Right knee pain Procedure: 2 views right knee Comparison: No prior studies for comparison. Findings: There is mild-moderate tricompartment osteoarthritis. No fracture, subluxation or dislocati on. No joint effusion. No foreign bodies. Impression: 1: Mild-moderate tricompartment osteoarthritis of the right knee. Reviewed, dictated and finalized at location A. Impression: 1: Mild-moderate tricompartment osteoarthritis of the right knee.
--- NOTE | ~2025-04-24 | XR_ITS ---
AP and lateral views of the right hip Clinical history: Pain Findings: No acute fracture or dislocation is seen. Osseous alignment is anatomic. Right hip joint in tact. Soft tissues are unremarkable. Impression: No significant abnormality is seen. Reviewed, dictated and finalized at location . Impression: No significant abnormality is seen.
--- OUTSIDE RECORDS SUMMARY | 2025-04-24 12:33 | XMS_ITS | Clinical Summary ---
Author Organization [facility] [address] [facility] Address [address] [place] [address] Care Team Providers Care Male Model Name Role Phone Brennon Shane MD Primary Care Provider Social History Tobacco Use Types Packs/Day Years Used Date Smoking Tobacco: Never Assessed Comments Unknown Sex and Gender Information Value Date Recorded Sex Assigned at Not on file Legal Sex Female 2:20 PM CDT Gender Identity Not on file Sexual Orientation Not on file Plan of Treatment Health Maintenance Due Date Last Done Comments DTAP/TDAP/TD VACCINES (1 - Tdap) 1990 HEPATITIS B VACCINES (1 of 3 - 19+ 3-dose series) 11/1989 HPV/Cotest (21-29) 1992 CERVICAL CANCER SCREENING 2001 HPV/Cotest (30-65) 2001 PAP SMEAR 2001 BREAST CANCER SCREENING 2011 COLORECTAL SCREENING 2016 Colorectal Cancer Screening 2016 FIT-DNA Q 3 years 2016 FIT/FOBT Q 1 year 2016 Flex Sig/CT Colonography Q 5 years 2016 ZOSTER VACCINE (1 of 2) 2021 INFLUENZA VACCINE (#1) 2025 Care Teams Male Model Relationship Specialty Start Date End Date Brennon Shane MD [address] [facility] [address] [place] [id number] PCP - General Family Practice 05/20/20
--- OUTSIDE RECORDS SUMMARY | 2025-04-24 12:33 | XMS_ITS | Clinical Summary ---
Author Organization [facility] Address [address] [place] [address] Care Team Providers Care Nursing Teacher Name Role Phone Brennon Shane MD Primary Care Provider Allergies Active Allergy Reactions Criticality Noted Date Comments Penicillin Hives Medium 10/28/2021 Sumatriptan Chest tightness Medium 10/28/2021 Medications amLODIPine (NORVASC) 5 mg tablet Take 5 mg by mouth daily 2 Active albuterol HFA (PROVENTIL HFA,VENTOLIN HFA,PROAIR HFA) 90 mcg/actuation inhaler albuterol sulfate HFA 90 mcg/actuation aerosol inhaler INHALE 1 TO 2 PUFFS BY MOUTH EVERY 4 TO 6 HOURS NEEDED FOR SHORTNESS OF BREATH OR WHEEZING Active HYDROcodone-acetam inophen (NORCO) 5-325 mg per tablet 1 Active meloxicam (MOBIC) 15 mg tablet meloxicam 15 mg tablet Active ondansetron ODT (ZOFRAN-ODT) 4 mg disintegrating tablet 1 Active hydroCHLOROthiazid e (MICROZIDE) 12.5 mg capsule Take 1 capsule (12.5 mg total) by mouth every morning 30 capsule 11 2 Active Active Problems Problem Noted Date Diagnosed Date Family history of abdominal aortic aneurysm (AAA ) 12/16/2021 Abnormal stress test 10/28/2021 Other chest pain 10/28/2021 HTN (hypertension), benign 10/28/2021 Gastroesophageal reflux disease without esophagi tis 10/28/2021 Lipid screening 10/28/2021 Fibroadenoma of breast 07/29/2016 Abnormal mammogram 01/28/2016 Encounters Date Type Department Care Team Description 02/01/2025 12:48 PM CDT - 02/01/2025 11:59 PM CDT Hospital Encounter [facility] ([facility]) [address] [place] [id number] Screening mammogram, encounter for Discharge Disposition: Discharge to home or self care from Last 3 Months Surgical History Surgery Date Site/Laterality Comments KNEE ARTHROSCOPY, MEDIAL PAT ELLO FEMORAL LIGAMENT REPAIR LYMPH NODE DISSECTION BREAST BIOPSY rt breast neg Medical History Medical History Date Comments Hypertension Hyperlipidemia Family History Medical History Relation Name Comments Aortic aneurysm Father Cancer Father Colon cancer Mother Colon adenocarc inoma - (Added by TW Conv) Cervical cancer Sister Family histo ry of malignant neoplasm of cervix - (Added by TW Conv) Breast cancer Neg Hx Ovarian cancer Neg Hx Thyroid cancer Neg Hx Usual Breast Hyperplasia Neg Hx Relation Name Status Comments Father (Age 79) Mother Alive Sister Social History Tobacco Use Types Packs/Day Years Used Date Smoking Tobacco: Never Smokeless Tobacco: Never Comments Unknown Sex and Gender Information Value Date Recorded Sex Assigned at Not on file Legal Sex Female 6:22 AM 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 Gender Identity Not on file Sexual Orientation Not on file Obstetrics History Para Term AB IAB SAB Ectopic Multiple Livin g Live Births 1 0 0 Date Outcome GA Total Labor Labor/2nd/3rd Weight Sex Type Anes PTL Madhavi A1 A5 Name Clin Last Filed Vital Signs Vital Sign Reading Time Taken Comments Blood Pressure 138/82 12/16/2021 3:02 PM 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 Pulse 84 12/16/2021 3:02 PM 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 Temperature - - Respiratory Rate 18 10/28/2021 3:17 PM 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 Oxygen Saturation 98% 12/16/2021 3:02 PM 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 Inhaled Oxygen Concentration - - Weight 85.5 kg (188 lb 8 oz) 12/16/2021 3:02 PM 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 Height 175.3 cm (5' 9) 12/16/2021 3:02 PM 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 Body Mass Index 27.84 12/16/2021 3:02 PM 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 Plan of Treatment Health Maintenance Due Date Last Done Comments Cervical Cancer Screening 1971 Colon Cancer Screening-Colonoscopy 1971 Depression Screening 1971 Hepatitis C Screening 1971 DTaP/Tdap/Td Vaccine (1 - Tdap) 1982 Hepatitis B Screening 1989 Regular Well Visit/Exam 18-64 1989 Zoster Vaccine (1 of 2) 2021 Influenza Vaccine (Season Ended) 2025 Breast Cancer Screening-Mammogram 02/01/2026 02/01/2025, 11/23/2022, 07/09/2021, Additional history exists Pneumococcal vaccine <65 Aged Out No longer eligible based on patient's age to complete this topic Procedures Procedure Name Priority Date/Time Associated Diagnosis Comments SCREENING MAMMOGRAM BILATERAL W TITO Schedule Routine, Read Routine (OP Routine) 02/01/2025 12:59 PM CDT Screening mammogram, encounter for from Last 3 Months Results * Screening Mammogram Bilateral W Tito (02/01/2025 12:59 PM CDT) Anatomical Region Laterality Modality Breast Bilateral Mammography Narrative 02/02/2025 9:03 AM CDT Mammogram Technique: Bilateral Digital Breast Tomosynthesis, Bilateral C-view 2D Screening mammogram. Views obtained: bilateral craniocaudal and bilateral mediolateral oblique. Computer Aided Detection was performed. Mammogram Findings: The present examination has been compared to prior imaging studies performed at [facility] on 06/10/2020, and at [facility] on 07/09/2021 and 09/01/2023. The breasts are heterogeneously dense, which may obscure small masses. There are multiple masses in both breasts. There are no significant changes from the prior study. There is no suspicious abnormality in either breast. Impression: There is no mammographic evidence of malignancy. Annual screening mammography is recommended. If supplemental screening is desired, breast MRI would be recommended in this patient with heterogeneously dense breasts. OVERALL FINAL ASSESSMENT: BI-RADS CATEGORY 2: Benign. Procedure Note Christie Zabala MD - 02/02/2025 Mammogram Technique: Bilateral Digital Breast Tomosynthesis, Bilateral C-view 2D Screening mammogram. Views obtained: bilateral craniocaudal and bilateral mediolateral oblique. Computer Aided Detection was performed. Mammogram Findings: The present examination has been compared to prior imaging studies performed at [facility] on 06/10/2020, and at [facility] on 07/09/2021 and 09/01/2023. The breasts are heterogeneously dense, which may obscure small masses. There are multiple masses in both breasts. There are no significantchanges from the prior study. There is no suspicious abnormality in either breast. Impression: There is no mammographic evidence of malignancy. Annual screening mammography is recommended. If supplemental screeningis desired, breast MRI would be recommended in this patient with heterogeneously dense breasts. OVERALL FINAL ASSESSMENT: BI-RADS CATEGORY 2: Benign. us Self Screening Mammogram IMG MAMMO PROCEDURES Fi nal Result from Last 3 Months Insurance [facility] [employer] Care Teams Nursing Teacher Relationship Specialty Start Date End Date Brennon Shane MD [address] [facility] [address] [place] [address] PCP - General 01/28/17
--- OUTSIDE RECORDS SUMMARY | 2025-04-24 12:33 | XMS_ITS | Referral Summary ---
Author Organization [facility] Address [address] [place] [address] Care Team Providers Care Alarm Security Or Surveillance Monitor Name Role Phone Brennon Shane MD Primary Care Provider Encounters Date Type Department Care Team Description 02/01/2025 12:48 PM CDT - 02/01/2025 11:59 PM CDT Hospital Encounter [facility] ([facility]) [address] [place] [phone] Screening mammogram, encounter for Discharge Disposition: Discharge to home or self care from Last 3 Months Allergies Active Allergy Reactions Criticality Noted Date [...] Fibroadenoma of breast 07/29/2016 Abnormal mammogram 01/28/2016 Social History Tobacco Use Types Packs/Day Years Used Date Smoking Tobacco: Never Smokeless Tobacco: Never Comments Unknown Sex and Gender Information Value Date Recorded Sex Assigned at Not on file Legal Sex Female 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 Gender Identity Not on file Sexual Orientation Not on file Last Filed Vital Signs Vital Sign Reading Time Taken Comments Blood Pressure 138/82 12/16/2021 3:02 PM INTERNET MARKETING ASSISTANT Pulse 84 12/16/2021 3:02 PM INTERNET MARKETING ASSISTANT Temperature - - Respiratory Rate 18 10/28/2021 3:17 PM INTERNET MARKETING ASSISTANT Oxygen Saturation 98% 12/16/2021 3:02 PM INTERNET MARKETING ASSISTANT Inhaled Oxygen Concentration - - Weight 85.5 kg (188 lb 8 oz) 12/16/2021 3:02 PM INTERNET MARKETING ASSISTANT Height 175.3 cm (5' 9) 12/16/2021 3:02 PM INTERNET MARKETING ASSISTANT Body Mass Index 27.84 12/16/2021 3:02 PM INTERNET MARKETING ASSISTANT Plan of Treatment Not on file Procedures Procedure Name Priority Date/Time Associated Diagnosis [...] compared to prior imaging studies performed at [facility] on 06/10/2020, and at [facility] on 07/09/2021 and 09/01/2023. The breasts are [...] compared to prior imaging studies performed at [facility] on 06/10/2020, and at [facility] on 07/09/2021 and 09/01/2023. The breasts are [...] nal Result from Last 3 Months Insurance BS [employer] [facility] Care Teams Alarm Security Or Surveillance Monitor Relationship Specialty Start Date End Date Brennon Shane MD [address] [place] [address] PCP - General 01/28/17
--- OUTSIDE RECORDS SUMMARY | 2025-04-24 12:33 | XMS_ITS | Continuity of Care Document ---
Author Organization [facility] Address [address] [facility] [address] [facility] [address] [place] [address] Phone Care Team Providers Care Autoglazier Name Role Phone Ismael Rangel MD Unavailable Unavailable Allergies, Adverse Reactions, Alerts Substance Reaction Status Criticality Penicillins Active No Information Medications Medication Instructions Dosage Effective Dates (start - stop) Status Comments IBUPROFEN (unknown strength) Not Available - Active VICODIN (unknown strength) Not Available - Active Procedures Procedure Date MU Reporting OFFICE/OUTPATIENT VISIT NEW Advance Directives Directive Yes / No Effective Date File Name Resuscitation Not Answered N/A N/A Life Support Not Answered N/A N/A Intubation Not Answered N/A N/A Antibiotics Not Answered N/A N/A IV Fluid Support Not Answered N/A N/A Tube Feed Not Answered N/A N/A Other Directive N/A N/A WARNING:The information contained in this section is historical and is provided for information only and does not constitute a legal document or any assurance that the information is still accurate. Please verify the information with the burton of the legal document before using it for clinical purposes. Encounters Encounter Description Practice Location Reason(s) For Visit Diagnoses Date Provider Providers Copied on Encounter OFFICE/OUTPAT IENT VISIT NEW [facility] , [address] [facility] [address], [place], [address], tel:[phone] [facility] right knee pain (chief complaint) knee sprain Claire Guevara. [address] [facility] [address] [place], [place], [id number]. tel:[phone] Family History Family Member Type Diagnosis Age At Onset No Information Payers Payer name Insurance type Covered alliance party ID Authoriza tion(s) No Information Social History Type Description Quantity Date Captured Comments Alcohol Use Details No Caffeine Use Details Unknown Tobacco Use Status No Information Smoking Status Never smoker Non-Smoking Tobacco Use Details : No Details Available : No Details Available Sex Female Vital Signs Date / Time: Height Weight BMI Pulse Rate Blood Pressure Temperature Respiratory Rate Body Surface Area Head Circumference Head Circ. Percentile Wt./Jalil. Percentile BMI percentile Pulse Ox Inhaled Ox 12:04 PM 69.00 in 150.00 lbs 22.1 5 kg/m eter (2) 140/78 mm[Hg] Chief Complaint And Reason For Visit From encounter dated '07/05/2013 10:00'. right knee pain (chief complaint) Reason For Referral Reason For Referral No Information History Of Present Illness Encounter Date Complaint History Of Prese nt Illness No Information Functional Status Date Functional Assessmen t No Information Instructions Date Instruction Additional Infor mation Reviewed medications Assessments Type Assessment Date No Information Patient Care Teams Name Effective Dates (start - stop) Status Members No Information
== END 2025-04-24 12:29 | disposition home or self-care (01) ==
PROVIDERS: PCP Family Medicine; Visit Provider Family Medicine
DX: M25.551 Pain in right hip (principal); M17.11 Unilateral primary osteoarthritis, right knee
CPT/HCPCS: 73502; 73560